=== PATIENT | male | born 1990 | race Two or more races ===

== ENCOUNTER 2020-03-24 15:44 | Emergency (ER) | payer OTHER ==
[~2020-03-24] VITALS: Ht 182.9 cm; Wt 84.8 kg
[2020-03-24] MEDS ORDERED: PERMETHRIN60 GM TOPIC (16:11)
--- NOTE | 2020-03-24 16:11 | Emergency Room Report ---
History of Present Illness General Chief Complaint: Skin Rash/Abscess Source: Patient Present Illness HPI 29-year-old male presents to the emergency department complaining of recent scabies exposure. Patient reports that his girlfriend was exposed and was diagnosed with scabies. Patient states that he does have 1 or 2 small red spots on his bilateral wrists. He reports some mild itching. He denies pain. Pt. denies fevers, chills or swollen tender lymph nodes. Denies lesions/rashes elsewhere on the body. Denies new medications or body washes or creams. Denies swelling of the lips, tongue , throat or airway. Denies wheezing, or shortness of breath. Denies recent travel, recent illness or ill contacts. denies blisters, oral lesions, or sloughing of the skin Allergies: Coded Allergies: No Known Allergies (Unverified , 03/24/20) COVID-19 Screening Contact w/high risk pt: No Experienced COVID-19 symptoms?: No COVID-19 Testing performed HEALTHCARE SPECIALIST: Yes COVID-19 Screening: Negative COVID-19 COVID-19 Testing Source: CLINICAL APPEALS RN Patient History Past Medical History: see triage record Past Surgical History: none Pertinent Family History: none Immunizations: UTD Reviewed Nursing Documentation: PMH: Agreed; PSxH: Agreed Nursing Documentation-PMH Past Medical History: No Stated History Review of Systems All Other Systems: negative except mentioned in HPI Physical Exam Vital Signs Date Time Temp Pulse Resp B/P (MAP) Pulse Ox O2 Delivery O2 Flow Rate FiO2 03/24/20 16:01 98.4 75 17 119/67 (84) 96 Room Air Sp02 EP Interpretation: reviewed, normal General Appearance: no apparent distress, alert, GCS 15, non-toxic Head: normocephalic, atraumatic Eyes: bilateral eye normal inspection, bilateral eye PERRL ENT: hearing grossly normal, no angioedema, normal voice, uvula midline, moist mucus membranes Neck: full range of motion, other - no stridor Respiratory: chest non-tender, lungs clear, normal breath sounds, no wheezing, speaking full sentences Cardiovascular #1: regular rate, rhythm Musculoskeletal: normal range of motion, gait/station normal, non-tender Neurologic: alert, motor strength/tone normal, oriented x3, sensory intact, responsive, speech normal Psychiatric: judgement/insight normal Skin: rash - 2 punctate discrete erythematous papules on the bilateral wrists. No obvious excoriations. No crusting no blisters no vesicles no sloughing of the skin. Lymphatic: no adenopathy Medical Decision Making PA Attestation Dr. Kauffman is my supervising Physician whom patient management has been discussed with. Diagnostic Impression: Primary Impression: Scabies exposure ER Course 29-year-old male presents to the emergency department complaining of recent scabies exposure. Patient reports that his girlfriend was exposed and was diagnosed with scabies. Patient states that he does have 1 or 2 small red spots on his bilateral wrists. He reports some mild itching. He denies pain. Pt. denies fevers, chills or swollen tender lymph nodes. Denies lesions/rashes elsewhere on the body. Denies new medications or body washes or creams. Denies swelling of the lips, tongue , throat or airway. Denies wheezing, or shortness of breath. Denies recent travel, recent illness or ill contacts. denies blisters, oral lesions, or sloughing of the skin Ddx considered but are not limited to cellulitis, scabies, insect bites, tic bites, spider bites, contact dermatitis, Drug reaction, allergic reaction, fungal infection, lice. Vital signs: are WNL, pt. is afebrile H&PE are most consistent with 2 punctate discrete erythematous papules which may represent early scabies infection. No obvious bacterial infection at this time. No evidence of acute impending airway compromise or impending anaphylaxis. Patient is nontoxic in appearance and in no acute distress. Patient does not demonstrate respiratory distress at this time. ORDERS: none required at this time, the diagnosis is clinical ED INTERVENTIONS: None required at this time. DISCHARGE: At this time pt. is stable for d/c to home. Will provide printed patient care instructions, and any necessary prescriptions. Care plan and follow up instructions have been discussed with the patient prior to discharge. Last Vital Signs Date Time Temp Pulse Resp B/P (MAP) Pulse Ox O2 Delivery O2 Flow Rate FiO2 03/24/20 16:01 98.4 75 17 119/67 (84) 96 Room Air Disposition: HOME, SELF-CARE Condition: Stable Scripts Permethrin* (ELIMITE*) 60 Gm Cream..g. 1 APPLIC TOPIC ONCE, #60 GM 0 Refills Apply cream from head to toe; leave on for 8-14 hours before washing off with water; may reapply in 1 week if live mites appear. Prov: Yessy Larson 03/24/20 Referrals: Chani Bailey [facility] Patient Instructions: Scabies, Pediatric Additional Instructions: Take medications as directed. Apply cream all over the body leave on overnight and rinse off in the shower in the morning. Remove contaminated bedding. Follow up with a Primary Care Provider in 3-5 days, even if your symptoms have resolved. --Please review list of primary care clinics, if you do not already have a primary care provider Return sooner to ED if new symptoms occur, or current symptoms become worse. - Please note that this Emergency Department Report was dictated using [employer] board calender operator technology software, occasionally this can lead to erroneous entry secondary to interpretation by the dictation equipment. Yessy Larson Mar 24, 2020 16:10
[2020-03-24 16:20] VITALS: BP 119/67
--- NOTE | 2020-03-24 18:18 | NUR ---
ER DISCHARGE NOTE: Patient is cleared to be discharged per ERMD, pt is aox4, on room air, with stable vital signs. pt was given dc and prescription instructions, pt was able to verbalize understanding. pt is able to ambulate with steady gait. pt took all belongings.
== END 2020-03-24 16:22 | disposition home or self-care (01) ==
LOC: EMR 16:09
DX: Z20.7 Contact with and (suspected) exposure to pediculosis, acariasis and other infestations (principal)
CPT/HCPCS: 99282